=== PATIENT | female | born 1980 | race Caucasian/White ===

== ENCOUNTER → 2017-12-01 | Outpatient (CLI) | payer BC ==
[~2017-12-01] MED LIST: BREA1EAC5 MC; CALC500T24 PO; CALC500T7 PO; CARAF; CARAFATE PO; DCS100C PO; DOCU-143 PO; DOCU100C37 PO; HYDR-3720 PO; HYOS0.3710 PO; IBP800T PO; IBUP-1780 PO; OMEP20TA2 PO; OMEP40CA36 PO; ONDA4TAB11 PO; Oxycodone Hcl PO; PNT40TEC PO; PREN1TAB71 PO
== END ==
LOC: CARD 10:13
PROVIDERS: ATTEND Family Medicine
DX: R00.2 Palpitations (principal)
CPT/HCPCS: 93005

== ENCOUNTER → 2018-03-31 | Outpatient (CLI) | payer BC | LOC: CARD 12:54 | PROVIDERS: ATTEND Internal Medicine Cardiovascular Disease | DX: R00.2 Palpitations (principal); F41.9 Anxiety disorder, unspecified | CPT/HCPCS: 93017; 93306 ==

== ENCOUNTER 2019-01-26 20:39 | Outpatient (CLI) | payer BC | END 2019-01-27 06:34 | disposition home or self-care (01) | LOC: SLEEP 20:39 | PROVIDERS: ATTEND Internal Medicine Cardiovascular Disease | DX: G47.33 Obstructive sleep apnea (adult) (pediatric) (principal) | CPT/HCPCS: 95810 ==

== ENCOUNTER → 2021-08-15 | Outpatient (CLI) | payer BC, OTHER ==
--- NOTE | 2021-08-15 12:10 | Diagnostic Imaging Report ---
Indication: Routine screening. No prior mammograms are available for comparison. This is a baseline study. 2-D and 3-D bilateral screening mammography was performed with CAD. Scattered fibroglandular densities are identified bilaterally. No mass or malignant-appearing microcalcifications are seen. Axillae are unremarkable. IMPRESSION: BI-RADS Category 1 No mammographic features suspicious for malignancy are identified. ACR BI-RADS Category 1: Negative. Result letter will be mailed to the patient. Note: At least 10% of breast cancer is not imaged by mammography. Dictated by: Dictated on workstation # [id number]
== END ==
LOC: RAD 10:27
PROVIDERS: ATTEND Family Medicine
DX: Z12.31 Encounter for screening mammogram for malignant neoplasm of breast (principal)
CPT/HCPCS: 77063; 77067